=== PATIENT | male | born 1980 | race Caucasian/White ===

== ENCOUNTER 2020-05-01 22:21 | Emergency (ER) | payer SELFPAY ==
[~2020-05-01] VITALS: Ht 177.8 cm; Wt 95.3 kg
--- NOTE | 2020-05-01 22:30 | NUR ---
ED Nurse Note: patient is outside smoking a cigarette, when asked if he wanted to be triaged, patient told staff member to "fuck off"
[2020-05-01] MEDS ORDERED: INVEGA SUS234 MG/1.5 IM (23:20)
[2020-05-01 23:30] VITALS: BP 148/72
--- NOTE | 2020-05-01 23:44 | NUR ---
ED Nurse Note: patient not in waiting room
--- NOTE | 2020-05-01 23:50 | NUR ---
ER DISCHARGE NOTE: Patient is cleared to be discharged per ERMD, pt is aox4, on room air, with stable vital signs. pt was given dc instructions, pt was able to verbalize understanding, pt id band removed without complications. pt is able to ambulate with steady gait. pt took all belongings. patient refused to sign paperwork
--- NOTE | 2020-05-01 23:55 | Emergency Room Report ---
History of Present Illness General Chief Complaint: Pain Source: Patient Present Illness HPI Is a 40-year-old male with unknown past medical history. He possibly have psychiatric history. He presents with chief plaint generalized body pain. Initially he refused to be triage because he was too busy smoking outside. He will go in and out and refused triage for a while. Now he is back he told me that he has body pain. This is a chronic problem. He said that he already talk enough and refuses anything more. Denies suicidal thoughts homicidal thought. History is limited because so he is uncooperative. 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 COVID-19 Screening: Negative COVID-19 COVID-19 Testing Source: [email or web address] Patient History Past Medical History: see triage record, old chart reviewed Past Surgical History: none Pertinent Family History: none Social History: Reports: smoking Immunizations: other Reviewed Nursing Documentation: PMH: Agreed; PSxH: Agreed Nursing Documentation-PMH Past Medical History: No History, Except For Review of Systems Eye: Denies: eye pain, blurred vision ENT: Denies: ear pain, nose congestion, throat swelling Respiratory: Denies: cough, shortness of breath Cardiovascular: Denies: chest pain, palpitations Gastrointestinal: Denies: abdominal pain, diarrhea, nausea, vomiting Musculoskeletal: Denies: back pain, joint pain Skin: Denies: rash Neurological: Denies: headache, numbness Endocrine: Denies: increased thirst, increased urine Hematologic/Lymphatic: Denies: easy bruising All Other Systems: negative except mentioned in HPI Physical Exam Vital Signs Date Time Temp Pulse Resp B/P (MAP) Pulse Ox O2 Delivery O2 Flow Rate FiO2 05/01/20 23:13 98.1 95 18 142/85 (104) 95 Room Air Vitals unremarkable Sp02 EP Interpretation: reviewed, normal General Appearance: well appearing, no apparent distress, alert Head: normocephalic, atraumatic Eyes: bilateral eye PERRL, bilateral eye EOMI ENT: hearing grossly normal, normal pharynx Neck: full range of motion, supple, no meningismus Respiratory: chest non-tender, lungs clear, normal breath sounds Cardiovascular #1: regular rate, rhythm, no murmur Gastrointestinal: normal bowel sounds, non tender, no mass, no organomegaly, no bruit, non-distended Musculoskeletal: back normal, normal range of motion, gait/station normal Psychiatric: mood/affect normal Medical Decision Making Diagnostic Impression: Primary Impression: Pain ER Course Patient with generalized pain. Unknown etiology. He is otherwise stable. He refused to give much history. Will discharge home. Last Vital Signs Date Time Temp Pulse Resp B/P (MAP) Pulse Ox O2 Delivery O2 Flow Rate FiO2 05/01/20 23:13 98.1 95 18 142/85 (104) 95 Room Air Status: unchanged Disposition: HOME, SELF-CARE Condition: Stable Referrals: NON PHYSICIAN (PCP) Additional Instructions: Follow-up with your doctor in 7 days. Return if worse. Ilan Draper MD May 01, 2020 23:55
== END 2020-05-01 23:30 | disposition home or self-care (01) ==
LOC: EMR 22:39
DX: R52 Pain, unspecified (principal); F17.200 Nicotine dependence, unspecified, uncomplicated; Z88.2 Allergy status to sulfonamides
CPT/HCPCS: 99281